=== PATIENT | female | born 1940 | race Caucasian/White ===

== ENCOUNTER → 2016-04-18 | Outpatient (CLI) | payer OTHER ==
[~2016-04-18] MED LIST: ALDACTONE25 MG PO; ASPIRIN EC325 MG PO; COQ10200 MG PO; COZAAR25 MG PO; FIBERCON625 MG PO; FISH OIL1000 M1 PO; LASIX40 MG PO; SPIRIVA18 MCG INH; TRAZODONE HCL50 MG PO; VICODIN EQUIVAL1 TAB PO
--- NOTE | 2016-04-18 13:42 | DIAGNOSTIC IMAGING REPORT ---
PROCEDURE: US VENOUS - BILATERAL EXT INDICATION: NON HEALING WOUNDS TECHNIQUE: Duplex sonography of the deep and superficial venous system in both lower extremities was performed. Compression and augmentation techniques were used. The patient was scanned in the upright position. Surveillance of the venous system during Valsalva maneuver when appropriate was performed. COMPARISON: None. FINDINGS: There is venous reflux in the right proximal greater saphenous vein (2 seconds, diameter 16 mm. Mid greater saphenous vein measures 11 mm. Femoral vein is competent. Varicose veins are present. There is venous reflux in the left superficial femoral vein (1.2 seconds, diameter 9 mm) and mid greater saphenous vein (1.1 seconds, diameter 5 mm. Left greater saphenous vein measures 11 mm proximally. Varicose veins present. IMPRESSION: 1. Venous insufficiency of the right proximal greater saphenous vein and left mid greater saphenous vein 2. Venous insufficiency of the left superficial femoral vein 3. Bilateral varicose veins
--- NOTE | 2016-04-18 14:22 | DIAGNOSTIC IMAGING REPORT ---
PROCEDURE: US ART LOWER EXT WITH ZONIA-B/L INDICATION: NON HEALING WOUND TECHNIQUE: Color Doppler duplex imaging of the lower extremity arterial system was performed bilaterally. Pre and post exercise ABIs were acquired. COMPARISON: None. FINDINGS: Arm blood pressure 113, no exercise performed. RIGHT LOWER EXTREMITY: ABIs: Pre exercise posterior tibial: 164 Pre exercise dorsalis pedis: 135 Posterior tibial ankle arm index 1.45 dorsalis pedis ankle arm index 1.2 VESSELS/ WAVEFORMS: Triphasic, except a mixture of bi and triphasic in the popliteal posterior tibial and anterior tibial. RIGHT LOWER EXTREMITY PEAK SYSTOLIC VELOCITIES: External iliac: 118 cm/second. Common femoral artery: 71 cm/second. Profunda femoral artery: 38 cm/second. Proximal superficial femoral artery: 100 cm/second. Mid superficial femoral artery: 61 cm/second. Distal superficial femoral artery: 90 cm/second. Popliteal artery: 47 cm/second. Proximal posterior tibial artery: 74 cm/second. Proximal anterior tibial artery: 69 cm/second. Distal posterior tibial artery: 59 cm/second. Dorsalis pedis artery: 114 cm/second. LEFT LOWER EXTREMITY: ABIs: Pre exercise posterior tibial: 144 Pre exercise dorsalis pedis: 166 Posterior tibial ankle arm index 1.3 dorsalis pedis ankle arm index 1.47 VESSELS/ WAVEFORMS: Triphasic LEFT LOWER EXTREMITY PEAK SYSTOLIC VELOCITIES: External iliac: 126 cm/second. Common femoral artery: 70 cm/second. Profunda femoral artery: 51 cm/second. Proximal superficial femoral artery: 59 cm/second. Mid superficial femoral artery: 68 cm/second. Distal superficial femoral artery: 68 cm/second. Popliteal artery: 38 cm/second. Proximal posterior tibial artery: 32 cm/second. Proximal anterior tibial artery: 79 cm/second. Distal posterior tibial artery: 50 cm/second. Dorsalis pedis artery: 106 cm/second. IMPRESSION: 1. No significant stenosis in the either lower extremity. 2. Mild atherosclerotic disease in the right lower extremity below the knee. 3. Calcified areas were seen throughout both lower extremity arterial trees.
== END ==
LOC: US SRH 10:00
DX: I87.2 Venous insufficiency (chronic) (peripheral) (principal); I83.93 Asymptomatic varicose veins of bilateral lower extremities; I70.209 Unspecified atherosclerosis of native arteries of extremities, unspecified extremity

== ENCOUNTER 2016-06-01 11:33 | Outpatient (CLI) | payer OTHER | END 2016-06-01 23:00 | LOC: LAB SRH 11:33 | DX: L97.219 Non-pressure chronic ulcer of right calf with unspecified severity (principal) | CPT/HCPCS: 90074; 90100 ==

== ENCOUNTER 2016-06-13 15:57 | Emergency (ER) | payer OTHER ==
--- NOTE | 2016-06-13 16:50 | DIAGNOSTIC IMAGING REPORT ---
PROCEDURE: XR CHEST 2 VIEW INDICATION: SHORTNESS OF BREATH TECHNIQUE: PA and lateral views. COMPARISON: Chest 02/15/2016 FINDINGS: Status post median sternotomy and aortic valve prosthesis. Moderate cardiomegaly with mild pulmonary vascular congestion, but no evidence of interstitial edema. There are small bilateral pleural effusions (left greater than right). Lungs are otherwise clear. Thorax is normal. IMPRESSION: 1. Status post mediastinotomy and aortic valve prosthesis. 2. Moderate cardiomegaly with pulmonary vascular congestion. While there is no evidence of interstitial edema, there has been development of bilateral pleural effusions, an occult/mild congestive heart failure should be considered.
--- NOTE | 2016-06-13 21:13 | ED CLINICAL REPORT ---
Clinical Report - Physicians/Mid Levels [facility] [address] [place] [address] 06/13/2016 15:58 Patient: LÓPEZ MILLAN Arrived- By private vehicle. Historian- patient. HISTORY OF PRESENT ILLNESS Chief Complaint: DYSPNEA and HISTORY OF CONGESTIVE HEART FAILURE. This started past 4 days and is still present and worsening. It was gradual in onset and has been constant but is not gone now. The dyspnea is described as moderate and is worsened by exertion, is improved by rest and is improved with sitting upright. The patient has had a cough. No sweating episodes, wheezing, chest discomfort, calf pain or foot swelling. (being seen at the wound clinic for lesion to the right downey. reports it is doing much better with abx treatment.). Similar symptoms previously: None. Recent medical care: Not recently seen/assessed. REVIEW OF SYSTEMS No nausea, vomiting or abdominal pain. All systems otherwise negative, except as recorded above. PAST HISTORY See nurses notes. Congestive heart failure. Risk factors for DVT/pulmonary embolism- congestive heart failure and advanced age. Denies the following risk factors for DVT/PE - history of DVT and pulmonary embolism, recent surgery, recent ND and estrogens. Denies the following risk factors for DVT/PE - immobility and vena cava filter. SOCIAL HISTORY Former smoker (stopped in the 70s). Never smoker. Occasional alcohol use. No drug use. No recent travel. Is a local resident. ADDITIONAL NOTES The nursing notes have been reviewed. PHYSICAL EXAM Vital Signs: 06/13/2016 16:20 BP: 101/53. HR: 98. RR: 24. O2 saturation: 100%. Blood pressure normal. Oxygen saturation normal. Appearance: Alert. No acute distress. Eyes: Pupils equal, round and reactive to light. Eyes normal inspection. ENT: Ears normal. Nose normal. Pharynx normal. Uvula midline. Neck: Normal inspection. No jugular venous distention. Neck supple. No JVD. CVS: Normal heart rate and rhythm. Heart sounds normal. Pulses normal. Respiratory: No respiratory distress. Breath sounds normal. No wheezes, stridor, rales or rhonchi. Abdomen: Soft and nontender. No organomegaly. Back: Normal inspection. Skin: Skin warm and dry. Normal skin color. No rash. Normal skin turgor. (chronic wound to the right lower extremity. hyperemia surrounding the lesion. appropriately tender). Extremities: Extremities exhibit normal ROM. No lower extremity edema. LABS, X-RAYS, AND EKG EKG: No acute ischemia. Atrial fibrillation (wide-complex) (94). a fib with controlled rate. LBBB. Changes present when compared to prior EKG. (improved from EKG on 02/15/2016). The study has been interpreted contemporaneously. The study has been independently viewed by me. The EKG appears to be a good tracing. Chest X-ray: (PROCEDURE: XR CHEST 2 VIEW INDICATION: SHORTNESS OF BREATH TECHNIQUE: PA and lateral views. COMPARISON: Chest 02/15/2016 FINDINGS: Status post median sternotomy and aortic valve prosthesis. Moderate cardiomegaly with mild pulmonary vascular congestion, but no evidence of interstitial edema. There are small bilateral pleural effusions (left greater than right). Lungs are otherwise clear. Thorax is normal. IMPRESSION: 1. Status post mediastinotomy and aortic valve prosthesis. 2. Moderate cardiomegaly with pulmonary vascular congestion. While there is no evidence of interstitial edema, there has been development of bilateral pleural effusions, an occult/mild congestive heart failure should be considered.). Chest X-ray #2: (interval placement of a right IJ central line. Catheter appears to be in adequate position. No pneumothorax. Feel mostreviewed and interpreted by me). Views: AP (portable). The X-rays were independently viewed by me and interpreted contemporaneously by me. Laboratory Tests: CBC w Diff: (ROCK: 06/13/2016 17:05) ( MsgRcvd 06/13/2016 17:24) Final results Test Result Flag Units (Reference) WHITE BLOOD COUNT 5.4 K/uL (4.5-11.5) RED BLOOD COUNT 2.77 L M/uL (4.00-5.20) HEMOGLOBIN 8.7 L gm/dL (12.0-16.0) HEMATOCRIT 26.8 L % (36.0-46.0) MEAN CELL VOLUME 97 fL (80-100) MEAN CORPUSCULAR HGB 31 pg (26-34) MEAN CORPUSCULAR HGB CONC 32 g/dL (31-37) RED CELL DISTRIBUTION WIDTH 19.0 H % (11.6-14.8) PLATELET COUNT 122 L K/uL (150-400) NEUTROPHIL % 86.8 H % (50-75) LYMPH % 5.2 L % (25-40) MONO % 6.6 % (3-14) EOSINOPHIL % 0.5 % (0-4) BASOPHIL % 0.9 % (0-2) PT with INR: (ROCK: 06/13/2016 17:05) ( [facility] 06/13/2016 17:33) Final results Test Result Flag Units (Reference) INR 1.3 H (0.8-1.2) Low Intensity Therapy: INR 1.5-2.0 PT range 18.5-23.1Mod.Intensity Therapy: INR 2.0-3.0 PT range 23.1-31.5High Intensity Therapy: INR 2.5-3.5 PT range 27.4-35.5High Intensity Therapy 2: INR 3.0-4.0 PT range 31.5-39.3 BMP: (ROCK: 06/13/2016 18:30) ( [facility] 06/13/2016 19:44) Final results Test Result Flag Units (Reference) GLUCOSE 84 mg/dL (70-110) BUN 71 *H mg/dL (7-18) CRITICAL RESULTS CALLEDCalled to Elena GARCIA 06/13/161941Were 2 patient identifiers used? YWas the result read back? Y CREATININE 4.1 H mg/dL (0.6-1.3) Estimated GFR 11.21 mL/min Estimated GFR- 13.59 mL/min Note: Persistent reduction over 3 months in eGFR<60 mL/min/1.73 m2 defines CKD. Patients with eGFR values>=60 mL/min/1.73 m2 may also have CKD if evidence ofpersistent proteinuria. Additional information may be foundat [email or web address]. SODIUM 133 L mmol/L (136-145) POTASSIUM 5.7 H mmol/L (3.5-5.1) CHLORIDE 100 mmol/L (98-107) CARBON DIOXIDE 22 mmol/L (21-32) CALCIUM 8.4 L mg/dL (8.5-10.1) Troponin-I: (ROCK: 06/13/2016 18:30) ( [facility] 06/13/2016 19:40) Final results Test Result Flag Units (Reference) TROPONIN I 0.08 ng/mL (0.00-1.5) TROPONIN REFERENCE RANGE:<0.1 NEGATIVE0.1-1.5 INDETERMINANT>1.5 POSITIVE BNP: (ROCK: 06/13/2016 17:05) ( [facility] 06/13/2016 17:51) Final results Test Result Flag Units (Reference) B-TYPE NATRIURETIC PEPTIDE 656 H pg/ml (5-100) Lactate, Serum: (ROCK: 06/13/2016 17:05) ( [facility] 06/13/2016 17:45) Final results Test Result Flag Units (Reference) LACTIC ACID 0.9 mmol/L (0.4-2.0) CMP: (ROCK: 06/13/2016 17:05) ( [facility] 06/13/2016 17:48) Final results Test Result Flag Units (Reference) GLUCOSE 85 mg/dL (70-110) BUN 71 *H mg/dL (7-18) CRITICAL RESULTS CALLEDCalled to Elena GONZALES 06/13/16 1747Were 2 patient identifiers used? YWas the result read back? Y CREATININE 4.2 H mg/dL (0.6-1.3) Estimated GFR 10.91 mL/min Estimated GFR- 13.22 mL/min Note: Persistent reduction over 3 months in eGFR<60 mL/min/1.73 m2 defines CKD. Patients with eGFR values>=60 mL/min/1.73 m2 may also have CKD if evidence ofpersistent proteinuria. Additional information may be foundat [email or web address]. SODIUM 134 L mmol/L (136-145) POTASSIUM 6.1 H mmol/L (3.5-5.1) CHLORIDE 99 mmol/L (98-107) CARBON DIOXIDE 28 mmol/L (21-32) CALCIUM 8.8 mg/dL (8.5-10.1) TOTAL PROTEIN 6.8 g/dL (6.4-8.2) ALBUMIN 3.3 g/dL (3.3-5.0) BILIRUBIN, TOTAL 1.2 H mg/dL (0.0-1.0) ALKALINE PHOSPHATASE 109 U/L (46-116) AST (SGOT) 25 U/L (15-37) ALT (SGPT) 18 U/L (12-78) TROPONIN I 0.13 ng/mL (0.00-1.5) TROPONIN REFERENCE RANGE:<0.1 NEGATIVE0.1-1.5 INDETERMINANT>1.5 POSITIVE . PROGRESS AND PROCEDURES Central Line Placement: The risks of the procedure, benefits and alternatives were explained. Bloodstream infection prevention education was provided. Consent was obtained. O2 administered. Placed on pulse oximeter and cardiac exercise specialist. Parenteral analgesia given. Placed in Trendelenburg. Hand hygiene observed, sterile barrier precautions adhered to (cap), (mask), (gown), (gloves) and (large sterile sheet) and chlorhexidine skin antisepsis used. Local anesthetic infiltrated .18g triple lumen central line placed using ultrasound guidance with sterile technique and Seldinger technique. Good blood return observed. Catheter was secured. Antibiotic ointment applied. Dressing applied. The patient was clinically stable following the procedure. Post-procedure X-ray showed no pneumothorax and good catheter tip position. Estimated blood loss: 3 mL. ( informed verbal consent obtained from patient as well as family members. Patient declined signing in the emergency department secondary to weakness and deferred to the . Workup to contact family via phone. Patient initially wanted the procedure done in asitting upright position. Head discussion patient in regards to the likely unsuccessful behavior due to collapse of the blood vessel as well as increased difficulty in obtaining the central line. Patient understands risks and benefits and wanted to have the procedure done sitting up. Patient was agreeable to laying down and being placed in the Trendelenburg positionif there is difficulty in obtaining An upright position. Several times are made with the patient sitting upright however was unsuccessful. Patient was then placed in a Trendelenburg position. The line was obtainedshortly after the patient was placed in this position.). Course of Care: The patient is a pleasant 75-year-old female presenting for evaluation of generalized weakness. On initial presentation, patient's blood pressure is noted to be unremarkable. Patient has a history of congestive heart failure. Differential diagnosis includes CHF exacerbation, infectious etiology, electrolyte abnormalities, metabolic disturbance. Laboratory studies include chest x-ray and EKG had been obtained. Patient is currently resting in bed in no acute distress. Again patient appears nontoxic. Patient's laboratory studies are notable for the findings above. Hemoglobin is noted to be 0.7. Patient is also noted to have signs of mild congestive heart failure. Patient's blood pressure has been low after initial presentation. Patient continues however to bementating well. No other abnormalities noted. Gentle fluid bolus has been ordered in order to support blood pressure however will be cautious because of congestive heart failure. Patient is monitored after the bolus of fluid has been given. Patient continues to be hypotensive however again continues to have normal mentation. Had discussion with cardiology in regards to the management of this patient. Cardiology recommended patient be transferred to their facility and monitored. Patient's health insurance provider was [facility] [employer]. Was able to speak to the [place] provider and obtain approval for transfer to [facility]. Pathology there is no other beds available at the other facilities and in [place]. Other recommendations were made from the cardiologists including consultation with the hospitalist. In speaking with the hospitalist, they wanted the patient's to have nephrology on board for dialysis as well as a central line placed. Patient is noted to be full code. Central line was placed. Please see procedure for details. No complications. After the central line was obtained, Dopamine was started for blood pressure support. Initially, patient did not have any significant response a low-dose dopamine. EMS was available for transportation after informed written/verbal consent was obtained for the transfer. Because the patient did not have significant improvement with her blood pressure on the low-dose dopamine drip, the dose was increased. Patient reports a however went into atrial fibrillation with RVR. The patient again was noted to be hemodynamically otherwise stable. Blood pressure was improved with this dopamine dose. EMS reports that they will titrate the drip appropriately. Low-dose dopamine will be given. Unfortunate, the patient's condition is critical. The patient's low pressureis difficult to control given the fact that patient has congestive heart failure and would be difficult to provide fluid boluses and the need for avoiding fluid overload. Pressure support also with dopamine has been difficult because of atrial for ablation with rapid ventricular response. Patient was transferred. Patient was noted to be ready for transport. Critical care performed (95 minutes). Time is exclusive of separately billable procedures. Time includes: direct patient care, patient reassessment, coordination of patient care, review of patient's medical records, medical consultation, family consultation regarding treatment decisions and documentation of patient care. Consult obtained from cardiology and nephrology. Disposition: Benefits, risks and alternatives to transfer explained to patient and family. Transferred to [facility]. (Electronically signed by Gennaro Coffey Dr. 06/19/2016 23:25)
--- NOTE | 2016-06-13 21:13 | ED NURSING NOTES ---
Clinical Report - Nurses [facility] [address] [place] [address] 06/13/2016 15:58 Patient: LÓPEZ MILLAN TRIAGE Acuity: LEVEL 2. Chief Complaint: SHORTNESS OF BREATH and DIFFICULTY BREATHING. --16:29 Sybil Gray R.N. 16:20 06/13/16. BP: 101/53. HR: 98. RR: 24. O2 saturation: 100% on room air. O2 started via nasal cannula at 4 liters/minute. --16:29 Sybil Gray R.N. late entry - 20:22 06/13/16. --02:53 Elena Khalil 20:22 06/13/16. Pain level now 0/10. --02:53 Elena Khalil Weight: 54.4 kg estimated. Height/Length: 65 inches Estimated. BMI: 20. --20:51 Elena Khalil Medications Aspirin Oral (Tablet 325 mg) 1 tablet, q day. CoQ-10 Oral (Capsule 200 mg) 1 capsule, qday. Fibercon 625 mg twice daily. Fish oil 1000 q day. Hydrocodone-Acetaminophen Oral 5 mg, as needed. Lasix Oral 40 mg, daily. Losartan Potassium Oral 25 mg, daily. --16:27 Sybil Gray R.N. Spiriva HandiHaler Inhalation (Capsule 18 mcg) 1 capsule, q day. Spironolactone Oral 25 mg, daily. TraZODone HCl Oral 50 mg 1-4 tabs, at bedtime. --16:27 Sybil Gray R.N. Allergies Milk and eggs. --16:27 Sybil Gray R.N. History Arrived by private vehicle. Historian: patient and family. This started today. ( shaking). SOCIAL HX: History of tobacco use (in 70's). Alcohol use; consumes beer occasionally. No drug use. NUTRITIONAL RISK ASSESSMENT: The nutritional risk assessment revealed no deficiencies. FUNCTIONAL ASSESSMENT: Functional assessment: no impairments noted. Functional assessment: no impairments noted. LEARNING NEEDS ASSESSMENT: The learning needs assessment revealed no barriers. --16:29 Sybil Gray R.N. PROBLEMS: Hyperkalemia. LNMP - Last Normal Menstrual Period. Asthma. Kidney disease. --16:27 Sybil Gray R.N. Interventions ID band on patient. To treatment room. --16:29 Sybil Gray R.N. PHYSICAL ASSESSMENT To room via wheelchair. Patient gowned. GENERAL / NEURO / PSYCH: Alert. Oriented X 4. Appears anxious and in distress. RESPIRATORY: Mild respiratory distress. The patient can speak a few words at a time. Decreased breath sounds. Wheezing present. CVS: Capillary refill is greater than 2 seconds. GI / : Abdomen soft and nontender. Bowel sounds within normal limits. SKIN: Skin is pale. Skin is warm. Skin is cool. Normal skin turgor. --16:37 Sybil Gray R.N. NURSING PROGRESS NOTES 16:37 06/13/16. Patient returned from radiology by stretcher with tech. (16:37). --16:37 Sybil Gray R.N. 17:08 06/13/2016 Site #1 started via IV in the right antecubital space with an 20g angiocath, with good blood return; one attempt. Blood drawn: rainbow set. Labeled in the presence of the patient. Saline lock flushed with 5 mL saline. --17:08 Sybil Gray R.N. 17:17 06/13/2016 Duoneb (Ipratropium-Albuterol) Neb TX 1 unit dose given. Given by the respiratory therapist. Allergies verified and confirmed 5 rights. --17:17 Bala Roque Reassessment after fluids administered. She has had no adverse reaction. Overall patient status is the same- she states feels the same. RESPIRATORY: The patient reports difficulty breathing. Moderate respiratory distress present. ( patients 500 ml NS finished . Her B/P is still low. Physician notified. Patient placed in a modified trendelenberg position). --18:13 Sybil Gray R.N. 17:30 06/13/16. BP: 81/43. HR: 90. RR: 18. O2 saturation: 99%. --18:19 Sybil Gray R.N. 18:19 06/13/16. BP: 74/34. HR: 85. RR: 18. O2 saturation: 99%. Pain level now: 0/10. --18:20 Sybil Gray R.N. 17:50 06/12/2016 Started bag #1 500 mL IV Fluids IV NS (Saline); at 1000 mL/hr via site #1 --18:24 Sybil Gray R.N. 18:14 06/13/2016 IV Fluids IV NS Discontinued: bag #1 infused. Total amount infused: 500 mL. IV patency established. IV site checked: no pain, redness, or swelling. IV flushed thoroughly. --18:24 Sybil Gray R.N. 18:20 06/13/16. ( patients went home. She states she will call him later to come and get her. Patient states she is feeling better however she has had no change n her VS other that her O2 saturation). --18:22 Sybil Gray R.N. 18:43 06/13/16. BP: 80/39. HR: 81. RR: 18. O2 saturation: 100%. O2 started at 2 liters/minute. Pain level now: 0/10. Additional comments: Physician aware of patients B/P. Patient states I'm always low. She has no C/O being dizzy or any other symptoms of hypotension. --18:45 Sybil Gray R.N. 18:55 06/13/16. Blood samples drawn. ( 2 hour troponin). --18:55 Sybil Gray R.N. 19:09 06/13/16. BP: 71/38. HR: 92. RR: 20. O2 saturation: 100% on nasal cannula. O2 started at 2 liters/minute. Pain level now: 0/10. --19:10 Sybil Gray R.N. 19:10 06/13/16. ( patient report to BRIT Mcintyre). --19:10 Sybil Gray R.N. The patient is resting quietly. Patient identifiers checked. Call light placed in reach. Side rails up x 2. Bed placed in lowest position. Brakes of bed on. --19:27 Elena Khalil 19:26 06/13/16. BP: 81/46. HR: 79. RR: 18. O2 saturation: 98%. Temp: deferred. Pain level now: 0/10. --19:27 Elena Khalil Critical value relayed to ED by NAIDA Leos. BUN: 71. Critical value. Verified lab result and patient ID. ED physician notifed of critical value. --19:42 Maureen Gonzalez R.N. ( spoke with daughter and she is very concerned about her mother, states that she is more confused and slurring her words. She states this is not her mother's baseline. Explained that we still awaiting labs and can call us back in an hour. Spoke with and we will probably be transferring this pt to another facility.). --19:54 Elena Khalil 19:54 06/13/16. BP: 99/47. HR: 99. RR: 20. O2 saturation: 98%. Temp: deferred. Pain level now: 0/10. --19:54 Elena Khalil 20:45 06/13/16. BP: 85/44. HR: 86. RR: 18. O2 saturation: 98% on nasal cannula at 2 liters/minute. O2 started via nasal cannula. Temp: 98.4 F. Pain level now: 0/10. --20:46 Elena Khalil ( pt unable to give a UA at this time). --20:46 Elena Khalil 21:35 06/13/2016 Three (3) unsuccessful IV access attempts including the left antecubital space and hand. Applied bandage, pressure dressing and manual pressure. --21:42 Maureen Gonzalez R.N. 22:06 06/13/2016 Insulin REG IVP 5 unit given over 1 minute(s) via site #1. Allergies verified and confirmed 5 rights. IV patency established. IV site checked: no pain, redness, or swelling. IV flushed thoroughly pre- and post-medication administration. IVP given by RN. --22:06 Elena Khalil 22:06/13/2016 D-50 IVP 1 Amp given over 2 minute(s) via site #1. Allergies verified and confirmed 5 rights. IV patency established. IV site checked: no pain, redness, or swelling. IV flushed thoroughly pre- and post-medication administration. IVP given by RN. --22:06 Elena Khalil 22:07 06/13/16. BP: 79/34. HR: 78. RR: 18. O2 saturation: 100%. Temp: deferred. Pain level now: 0/10. --22:07 Elena Khalil Finger stick glucose: 169; performed by tech; result shown to the ED physician. --22:38 Elena Kahlil DISPOSITION / DISCHARGE Report was given to a nurse via a phone call. Report included patient's care, treatment, medications, reviewed medication reconcilliation, and condition (including any recent changes or anticipated changes). All questions were answered. Report was acknowledged and care was transferred. ( pt will be transferred to another facility, report given to [facility], pt going to room 2012). --22:49 Eelna Khalil Condition at departure: stable. Transferred to [facility]. Summary of care provided to transport team, EMS and transfer facility via paper and fax ([id number]). Transported via ambulance by EMS with monitor, IV and O2. --23:43 Elena Khalil 23:39 06/13/16. BP: 99/56. HR: 18. RR: 99. O2 saturation: 99%. Temp: deferred. Pain level now: 0/10. --23:43 Elena Khalil Locked/Released at 06/14/2016 2:53 by Elena Khalil
--- NOTE | 2016-06-13 21:13 | ED ORDER SUMMARY ---
..... Patient: LÓPEZ MILLAN OrderSheet [facility] VisitID: [id number] [place] [address] 75y, F Registration Date/Time: 06/13/2016 ORDER SHEET Weight: 54.4 kg (estimated) Allergies: Milk and eggs GENERAL ORDERS: Whitewasher (Continuous) (SOB) (16:06/13/2016 Alison Rajput) (Ack 16:25 LNations ER Tech1) (18:46 TChapman R.N.) Chest 2V Urgent (16:06/13/2016 Alison Rajput) (Ack 16:25 LNations ER Tech1) (17:32 LNations ER Tech1) CBC w Diff Urgent (16:06/13/2016 Alison Rajput) (Ack 16:25 LNations ER Tech1) (19:19 ALawrence ER Tech1) (19:19 TBowen R.N.) CMP Urgent (16:06/13/2016 Alison Rajput) (Ack 16:25 LNations ER Tech1) (19:19 ALawrence ER Tech1) (19:19 TBowen R.N.) UA-Culture if indicated Urgent (16:06/13/2016 Alison Rajput) (Ack 16:25 LNations ER Tech1) PT with INR Urgent (16:06/13/2016 Alison Rajput) (Ack 16:25 LNations ER Tech1) (19:19 ALawrence ER Tech1) (19:19 TBowen R.N.) Troponin-I Urgent (16:06/13/2016 Alison Rajput) (Ack 16:25 LNations ER Tech1) (19:19 ALawrence ER Tech1) (19:19 TBowen R.N.) Lactate, Serum Urgent (16:06/13/2016 Alison Rajput) (Ack 16:25 LNations ER Tech1) (19:19 ALawrence ER Tech1) (19:19 TBowen R.N.) Pulse oximeter (16:06/13/2016 Alison Rajput) (Ack 16:24 LNations ER Tech1) (18:46 TChapman R.N.) Oxygen (2 L/min) (NC) (16:23 06/13/2016 Alison Rajput) (Ack 16:24 LNations ER Tech1) (18:46 TChapman R.N.) EKG - ER Stat (16:23 06/13/2016 Alison Rajput) (Ack 16:25 LNations ER Tech1) (17:21 LNations ER Tech1) BNP Urgent (16:35 06/13/2016 Alison Rajput) (Ack 17:13 LNations ER Tech1) (19:19 ALawrence ER Tech1) (19:19 TBowen R.N.) Troponin-I (redraw 2 hours after first draw) Urgent (18:37 06/13/2016 Alison Rajput) (Ack 18:52 [place]) (19:19 TBowen R.N.) BMP (repeat draw) Urgent (19:00 06/13/2016 Alison Rajput) (Ack 19:02 Richmnod) (19:20 TBowen R.N.) Consent for: (central line and transfer) (21:29 06/13/2016 Alison Rajput) (22:38 TBowen R.N.) POC Glucose (30 minutes after insulin) (21:30 06/13/2016 Alison Rajput) (22:38 TBowen R.N.) Chest 1V Urgent (23:24 06/13/2016 TBowen R.N. verbal order read back to Alison Rajput) (Ack 23:30 ALawrence ER Tech1) (23:37 Nat) MEDICATION ORDERS: DuoNeb Neb Tx 1 unit dose (NOW) (16:34 06/13/2016 Alison Rajput) (Ack 17:08 TChapmstanley R.N.) (17:17 Phoenix) IV FLUIDS: IV Saline Lock (16:23 06/13/2016 Alison Rajput) (17:08 TChapmstanley R.N.) IV NS : initial bolus 500 mL (1000 mL/hr), then none - for X1 (NOW) (17:37 06/13/2016 Alison Rajput) (18:24 Dimple Hayes.NZoë) Insulin Reg IV 5 units (HIGH ALERT MEDICATION, NOW) (21:28 06/13/2016 Alison Rajput) (22:06 Zion R.N.) D-50 IV 1 amp (with insulin for hyper K) (21:28 06/13/2016 Alison Rajput) (22:06 Zion R.N.) ORDER SHEET NOTES: [Electronically signed by Miguelina Brown R.N. (02:53 06/14/2016)] [Electronically signed by Gennaro Coffey Dr. (23:25 06/19/2016)] [Electronically locked/signed by Miguelina Brown R.N. (02:53 06/14/2016)]
--- NOTE | 2016-06-13 21:13 | ED ORDER SUMMARY ---
..... Patient: LÓPEZ MILLAN OrderSheet [facility] VisitID: [id number] [place] [address] 75y, F Registration Date/Time: 06/13/2016 ORDER SHEET Weight: 54.4 kg (estimated) Allergies: Milk and eggs GENERAL ORDERS: Winch Stripper (Continuous) (SOB) (16:06/13/2016 Alison Rajput) (Ack 16:25 LNations ER Tech1) (18:46 TChapman R.N.) Chest 2V Urgent (16:06/13/2016 Alison Rajput) (Ack 16:25 LNations ER Tech1) (17:32 LNations ER Tech1) CBC w Diff Urgent (16:06/13/2016 Alison Rajput) (Ack 16:25 LNations ER Tech1) (19:19 ALawrence ER Tech1) (19:19 TBowen R.N.) CMP Urgent (16:06/13/2016 Alison Rajput) (Ack 16:25 LNations ER Tech1) (19:19 ALawrence ER Tech1) (19:19 TBowen R.N.) UA-Culture if indicated Urgent (16:06/13/2016 Alison Rajput) (Ack 16:25 LNations ER Tech1) PT with INR Urgent (16:06/13/2016 Alison Rajput) (Ack 16:25 LNations ER Tech1) (19:19 ALawrence ER Tech1) (19:19 TBowen R.N.) Troponin-I Urgent (16:06/13/2016 Alison Rajput) (Ack 16:25 LNations ER Tech1) (19:19 ALawrence ER Tech1) (19:19 TBowen R.N.) Lactate, Serum Urgent (16:06/13/2016 Alison Rajput) (Ack 16:25 LNations ER Tech1) (19:19 ALawrence ER Tech1) (19:19 TBowen R.N.) Pulse oximeter (16:06/13/2016 Alison Rajput) (Ack 16:24 LNations ER Tech1) (18:46 TChapman R.N.) Oxygen (2 L/min) (NC) (16:23 06/13/2016 Alison Rajput) (Ack 16:24 LNations ER Tech1) (18:46 TChapman R.N.) EKG - ER Stat (16:23 06/13/2016 Alison Rajput) (Ack 16:25 LNations ER Tech1) (17:21 LNations ER Tech1) BNP Urgent (16:35 06/13/2016 Alison Rajput) (Ack 17:13 LNations ER Tech1) (19:19 ALawrence ER Tech1) (19:19 TBowen R.N.) Troponin-I (redraw 2 hours after first draw) Urgent (18:37 06/13/2016 Alison Rajput) (Ack 18:52 [place]) (19:19 TBowen R.N.) BMP (repeat draw) Urgent (19:00 06/13/2016 Alison Rajput) (Ack 19:02 [place]) (19:20 TBowen R.N.) Consent for: (central line and transfer) (21:29 06/13/2016 Alison Rajput) (22:38 TBowen R.N.) POC Glucose (30 minutes after insulin) (21:30 06/13/2016 Alison Rajput) (22:38 TBowen R.N.) Chest 1V Urgent (23:24 06/13/2016 TBowen R.N. verbal order read back to Alison Rajput) (Ack 23:30 ALawrence ER Tech1) (23:37 Nat) MEDICATION ORDERS: DuoNeb Neb Tx 1 unit dose (NOW) (16:34 06/13/2016 Alison Rajput) (Ack 17:08 TChapmstanley R.N.) (17:17 [place]) IV FLUIDS: IV Saline Lock (16:23 06/13/2016 Alison Rajput) (17:08 TChapmstanley R.N.) IV NS : initial bolus 500 mL (1000 mL/hr), then none - for X1 (NOW) (17:37 06/13/2016 Alison Rajput) (18:24 Dimple Hayes.NZoë) Insulin Reg IV 5 units (HIGH ALERT MEDICATION, NOW) (21:28 06/13/2016 Alison Rajput) (22:06 Zion R.N.) D-50 IV 1 amp (with insulin for hyper K) (21:28 06/13/2016 Alison Rajput) (22:06 Zion R.N.) ORDER SHEET NOTES: [Electronically signed by Miguelina Brown R.N. (02:53 06/14/2016)] [Electronically signed by Gennaro Coffey Dr. (23:25 06/19/2016)] [Electronically locked/signed by Miguelina Brown R.N. (02:53 06/14/2016)]
--- NOTE | 2016-06-13 23:51 | DIAGNOSTIC IMAGING REPORT ---
PROCEDURE: XR CHEST 1 VIEW INDICATION: LINE PLACEMENT TECHNIQUE: Single view chest. 2330 hours COMPARISON: 1634 hours FINDINGS: Moderate cardiomegaly status post median sternotomy and dual lead cardiac assist device. New right IJ central venous line in good position. Minor central venous prominence and diffuse interstitial thickening. Patchy alveolar opacities at both lung bases and small bilateral effusions. No pneumothorax. Demineralized osseous structures. IMPRESSION: 1. Adequate placement of new right IJ central venous line. 2. Moderate cardiomegaly with chronic findings of slight central vascular, interstitial, and pulmonary edema. 3. Little change since the previous study.
--- NOTE | 2016-06-19 23:25 | ED MAR SUMMARY ---
..... Medication Administration [facility] [address] [place] [address] Patient: LÓPEZ MILLAN Visit ID: [id number] 75y, F Weight: 54.4 kg Height/Length: 65 in BMI: 20 ALLERGIES: Milk and eggs Start 17:50 06/12/2016 Sybil Gray R.N., Stop 18:14 06/13/2016 Sybil Gray R.N. Medication Administered: IV NS (SALINE), Dose: IV Fluids, Rate: 1000 mL/hr, Dispensed: 500 mL bag, Site: #1. Medication Ordered: IV NS : initial bolus 500 mL (1000 mL/hr), then none - for X1 (NOW). Given 17:17 06/13/2016 Bala Roque, Medication Administered: DUONEB [NEB TX] (IPRATROPIUM-ALBUTEROL), Dose: 1 unit dose Neb TX. Medication Ordered: DuoNeb Neb Tx 1 unit dose (NOW). Given 22:06 06/13/2016 Elena Khalil Medication Administered: INSULIN REG [IVP], Dose: 5 unit IVP over 1 minute(s), Site: #1 right AC. Medication Ordered: Insulin Reg IV 5 units (HIGH ALERT MEDICATION, NOW). Given 22:06 06/13/2016 Elena Khalil Medication Administered: D-50 [IVP], Dose: 1 Amp IVP over 2 minute(s), Site: #1 right AC. Medication Ordered: D-50 IV 1 amp (with insulin for hyper K).
--- NOTE | 2016-06-19 23:25 | ED MAR SUMMARY ---
..... Medication Administration Record [facility] [address] [place] [address] Patient: LÓPEZ MILLAN Visit ID: [id number] 75y, F Weight: 54.4 kg Height/Length: 65 in BMI: 20 ALLERGIES: Milk and eggs Start 17:50 06/12/2016 Sybil Gray R.N., Stop 18:14 06/13/2016 Sybil Gray R.N. Medication Administered: IV NS (SALINE), Dose: IV Fluids, Rate: 1000 mL/hr, Dispensed: 500 mL bag, Site: #1. Medication Ordered: IV NS : initial bolus 500 mL (1000 mL/hr), then none - for X1 (NOW). Given 17:17 06/13/2016 Bala Roque, Medication Administered: DUONEB [NEB TX] (IPRATROPIUM-ALBUTEROL), Dose: 1 unit dose Neb TX. Medication Ordered: DuoNeb Neb Tx 1 unit dose (NOW). Given 22:06 06/13/2016 Elena Khalil Medication Administered: INSULIN REG [IVP], Dose: 5 unit IVP over 1 minute(s), Site: #1 right AC. Medication Ordered: Insulin Reg IV 5 units (HIGH ALERT MEDICATION, NOW). Given 22:06 06/13/2016 Elena Khalil Medication Administered: D-50 [IVP], Dose: 1 Amp IVP over 2 minute(s), Site: #1 right AC. Medication Ordered: D-50 IV 1 amp (with insulin for hyper K).
--- NOTE | 2016-06-19 23:25 | ED MED RECONCILIATION SUMMARY ---
Patient: LÓPEZ MILLAN Medication Reconciliation Report [facility] VisitID: [id number] [address] [place] [address] 75y, F Registration Date/Time: 06/13/2016 Weight: 54.4 kg Height/Length: 65 in. BMI: 20.0 ALLERGIES: Milk and eggs The patient's Home Medications are listed below: THE FOLLOWING MEDICATIONS NEED TO BE RECONCILED: Aspirin Oral (325 mg) 1 tablet, q day CoQ-10 Oral (200 mg) 1 capsule, qday Fibercon 625 mg twice daily Fish oil 1000 q day Hydrocodone-Acetaminophen Oral 5 mg Lasix Oral 40 mg, daily Losartan Potassium Oral 25 mg, daily Spiriva HandiHaler Inhalation (18 mcg) 1 capsule, q day Spironolactone Oral 25 mg, daily TraZODone HCl Oral 50 mg 1-4 tabs, at bedtime The source(s) of the original Home Medication information: Not obtained. The following Medications were given to the patient in the Emergency Department: Duoneb [Neb Tx] Neb TX 1 unit dose, administered: 06/13/2016 5:17:00 PM IV NS IV Fluids bolus 0, then 1000 mL/hr, administered: 06/12/2016 5:50:00 PM Insulin REG [IVP] IVP 5 unit, administered: 06/13/2016 10:06:00 PM D-50 [IVP] IVP 1 Amp, administered: 06/13/2016 10:06:00 PM The following Medications were prescribed to the patient: None.
--- NOTE | 2016-06-19 23:25 | ED MED RECONCILIATION SUMMARY ---
Patient: LÓPEZ MILLAN Medication Reconciliation Report [facility] VisitID: [id number] [address] [place] [address] 75y, F Registration Date/Time: 06/13/2016 Weight: 54.4 kg Height/Length: 65 in. BMI: 20.0 ALLERGIES: Milk and eggs The patient's Home Medications are listed below: THE FOLLOWING MEDICATIONS NEED TO BE RECONCILED: Aspirin Oral (325 mg) 1 tablet, q day CoQ-10 Oral (200 mg) 1 capsule, qday Fibercon 625 mg twice daily Fish oil 1000 q day Hydrocodone-Acetaminophen Oral 5 mg Lasix Oral 40 mg, daily Losartan Potassium Oral 25 mg, daily Spiriva HandiHaler Inhalation (18 mcg) 1 capsule, q day Spironolactone Oral 25 mg, daily TraZODone HCl Oral 50 mg 1-4 tabs, at bedtime The source(s) of the original Home Medication information: Not obtained. The following Medications were given to the patient in the Emergency Department: Duoneb [Neb Tx] Neb TX 1 unit dose, administered: 06/13/2016 5:17:00 PM IV NS IV Fluids bolus 0, then 1000 mL/hr, administered: 06/12/2016 5:50:00 PM Insulin REG [IVP] IVP 5 unit, administered: 06/13/2016 10:06:00 PM D-50 [IVP] IVP 1 Amp, administered: 06/13/2016 10:06:00 PM The following Medications were prescribed to the patient: None.
== END 2016-06-13 23:54 | disposition short-term general hospital (02) ==
LOC: ED SRH 15:57
DX: I50.9 Heart failure, unspecified (principal); I95.9 Hypotension, unspecified; R41.82 Altered mental status, unspecified; I48.91 Unspecified atrial fibrillation; N18.9 Chronic kidney disease, unspecified; L98.8 Other specified disorders of the skin and subcutaneous tissue; Z95.2 Presence of prosthetic heart valve